=== PATIENT | female | born 1955 | race Caucasian/White ===

== ENCOUNTER 2017-01-15 18:21 | Emergency (ER) | payer BC ==
[2017-01-15 19:22] VITALS: BP 122/57
--- NOTE | 2017-01-15 21:22 | UC ---
UC General HPI - HPI Summary HPI Summary: SUDDEN ONSET OF FEVER 103, CHILLS, BILATERAL RIB PAIN (RIGHT > LEFT), OVERAL BODY ACHES AND MALAISE TODAY AT 3PM. TOOK TYLENOL WHICH HELPED. NO INJURY OR TRAUMA. NO CP OR SOB. PAIN IS WORSE WITH DEEP BREATHS, COUGH AND MOVEMENT. NO ST , EAR PAIN, N/V/D. DOES NOT FEEL LIKE HER FIBRO PAIN. - History of Current Complaint Chief Complaint: UCRespiratory Stated Complaint: NAUSEA Time Seen by Provider: 01/15/17 20:30 Hx Obtained From: Patient, Family/Nurse Ob - DAUGHTER Onset/Duration: Sudden Onset, Lasting Hours, Still Present Timing: Constant Onset Severity: Moderate Current Severity: Moderate Pain Intensity: 4 Associated Signs & Symptoms: Positive: Fever. Negative: Abdominal Pain, Cough, Nausea, Palpitations, Recent Medication Changes, SOB, Vomiting - Allergy/Home Medications Allergies/Adverse Reactions: Allergies Allergy/AdvReac Type Severity Reaction Status Date / Time Erythromycin Allergy GI Upset Verified 01/15/17 19:23 Home Medications: Home Medications Acetaminophen TAB* [Tylenol TAB*] 01/15/17 [History] Albuterol HFA INHALER* [Ventolin HFA Inhaler*] 01/15/17 [History] Amitriptyline TAB* [Elavil TAB*] 01/15/17 [History] Bisoprolol Fumarate [Bisoprolol Fumarate-] 01/15/17 [History] DULoxetine DR CAP* [Cymbalta CAP*] 01/15/17 [History] Fluticasone-Salmeterol 250-50* [Advair Diskus 250-50*] 01/15/17 [History] Furosemide TAB* [Lasix TAB*] 01/15/17 [History] Gabapentin CAP(*) [Neurontin 300 CAP(*)] 01/15/17 [History] traMADol TAB* [Ultram*] 01/15/17 [History] PMH/Surg Hx/FS Hx/Imm Hx - Additional Past Medical History Additional PMH: SARCOIDOSIS, CHRISTOS, FIBROMYALGIA - Surgical History Surgical History: None - Family History Known Family History: Negative: Hypertension, Diabetes - Social History Alcohol Use: None Substance Use Type: None Smoking Status (MU): Former Smoker Review of Systems Constitutional: Fever, Chills Skin: Negative Respiratory: Negative Cardiovascular: Negative Gastrointestinal: Negative Genitourinary: Negative Musculoskeletal: Arthralgia, Myalgia All Other Systems Reviewed And Are Negative: Yes Physical Exam Triage Information Reviewed: Yes Appearance: Well-Appearing, Well-Nourished, Pain Distress - MODERATE Vital Signs: Initial Vital Signs Temp 98.9 F 01/15/17 19:17 Pulse 86 01/15/17 19:17 Resp 18 01/15/17 19:17 BP 122/57 01/15/17 19:17 Pulse Ox 96 01/15/17 19:17 Vital Signs Reviewed: Yes Eyes: Positive: Conjunctiva Clear ENT: Positive: Hearing grossly normal, Pharynx normal, TMs normal Neck: Positive: Supple, Nontender, No Lymphadenopathy Respiratory: Positive: Lungs clear, Normal breath sounds, No respiratory distress, No accessory muscle use, Other: - PLEURITIC PAIN, SPLINTING WITH DEEP BREATHS Cardiovascular Exam: Normal Abdomen Description: Positive: Soft Musculoskeletal: Positive: No Edema, Other: - EXQUISITELY TTP OVER RIB CAGE, RIGHT>LEFT Neurological: Positive: Alert Psychological: Positive: Normal Response To Family, Age Appropriate Behavior Skin: Negative: rashes Diagnostics - Laboratory Diagnostic Studies Completed/Ordered: RAPID FLU NEG Course/Dx - Differential Dx - Multi-Symptom Provider Diagnoses: VIRAL SYNDROME Discharge - Discharge Plan Condition: Stable Disposition: HOME Patient Education Materials: Viral Syndrome (ED) Additional Instructions: VIRAL SYNDROME: The physician has diagnosed a viral infection. Viruses not only cause "colds," but can cause many different symptoms including generalized aching, fever, headache, cough, diarrhea, nausea, vomiting, and fatigue. The treatment, for the most part, is simply relief of symptoms. This means that antibiotics are usually not given. Rest, fluids, pain medications and, occasionally, medication for the specific symptoms that are most bothersome will be prescribed. Contact the physician if you develop any new or unusual symptoms such as severe headache, stiff neck, high fever, chest pain, productive cough, or shortness of breath. You should be rechecked if you don't see marked improvement within seven to 10 days. NO CLEAR ETIOLOGY OF YOUR SYMPTOMS. RAPID FLU NEGATIVE. GO TO THE ER WITHOUT FAIL IF YOU DEVELOP SHORTNESS OF BREATH, CHEST PAIN, NAUSEA, WORSENING FEVER OR ANY OTHER CONCERNING SYMPTOMS. YOU MAY BENEFIT FROM IMAGING TO FURTHER EVALUATE YOUR RIB CAGE PAIN. FOLLOW-UP WITH YOUR DOCTORS IN [place].
== END 2017-01-15 22:08 | disposition home or self-care (01) ==
LOC: UCEAST 18:21
DX: B34.9 Viral infection, unspecified (principal); Z88.1 Allergy status to other antibiotic agents; Z87.891 Personal history of nicotine dependence
CPT/HCPCS: 87502; 99201; G0463

== ENCOUNTER 2019-04-16 16:41 | Emergency (ER) | payer BC, MEDICARE ==
[2019-04-16 17:33] VITALS: BP 117/54
--- NOTE | 2019-04-16 18:01 | ED ---
Back Pain - HPI Summary HPI Summary: 64 yr old female with the complaint of low back pain. Onset of pain two days ago after lifting her grandson. The patient rates her pain as 6/10, and it radiates down the back of both legs. no bowel or bladder incontinence. No focal weakness, or numbness in the legs. - History of Current Complaint Chief Complaint: UCBackPain Stated Complaint: LOWER BACK PAIN Time Seen by Provider: 04/16/19 17:43 Pain Intensity: 5 - Allergies/Home Medications Allergies/Adverse Reactions: Allergies Allergy/AdvReac Type Severity Reaction Status Date / Time erythromycin base Allergy Severe Vomiting Verified 04/16/19 17:28 Home Medications: Home Medications Albuterol HFA INHALER* [Ventolin HFA Inhaler*] 2 puff INH Q4H PRN 04/16/19 [ History Confirmed 04/16/19] Amitriptyline TAB* [Elavil TAB*] 2 tab PO BEDTIME 04/16/19 [History Confirmed ] Bisoprolol TAB* [Zebeta TAB*] 5 mg PO QAM 04/16/19 [History Confirmed 04/16/19] Cholecalciferol TAB* [Vitamin D TAB*] 2,000 unit QAM 04/16/19 [History Confirmed 04/16/19] DULoxetine DR CAP* [Cymbalta CAP*] 60 mg PO QAM 04/16/19 [History Confirmed ] Fluticasone-Salmeterol 250-50* [Advair Diskus 250-50*] 1 puff INH BID 04/16/19 [ History Confirmed 04/16/19] Potassium Chlor TAB* [Klor Con ER TAB*] 20 meq PO BID 04/16/19 [History Confirmed 04/16/19] Pregabalin CAP(*) [Lyrica CAP(*)] 50 mg PO TID 04/16/19 [History Confirmed 04/16] Ranitidine TAB (NF) [Zantac TAB (NF)] 1 tab QAM 04/16/19 [History Confirmed ] Spironolactone TAB* [Aldactone TAB 25 MG*] 1 tab BID 04/16/19 [History Confirmed 04/16/19] Torsemide TAB* [Demadex*] 2 tab PO DAILY 04/16/19 [History Confirmed 04/16/19] Verapamil TAB* [Calan TAB*] 120 mg PO BID 04/16/19 [History Confirmed 04/16/19] traMADol TAB* [Ultram*] 2 tab PO BID 04/16/19 [History Confirmed 04/16/19] PMH/Surg Hx/FS Hx/Imm Hx Infectious Disease History: Yes Infectious Disease History: Reports: Hx Shingles Denies: Traveled Outside the [place] in Last 30 Days - Family History Known Family History: Positive: None Negative: Hypertension, Diabetes - Social History Alcohol Use: Rare Substance Use Type: Reports: None Smoking Status (MU): Former Smoker Review of Systems Constitutional: Negative Positive: Other - back pain All Other Systems Reviewed And Are Negative: Yes Physical Exam Triage Information Reviewed: Yes Vital Signs On Initial Exam: Initial Vitals Temp Pulse Resp BP Pulse Ox 97.5 F 56 16 117/54 97 04/16/19 17:29 04/16/19 17:29 04/16/19 17:29 04/16/19 17:29 04/16/19 17:29 Vital Signs Reviewed: Yes Appearance: Positive: Well-Appearing, No Pain Distress Skin: Positive: Warm, Skin Color Reflects Adequate Perfusion Head/Face: Positive: Normal Head/Face Inspection Eyes: Positive: EOMI, DIETER ENT: Positive: Normal ENT inspection Neck: Positive: Nontender Respiratory/Lung Sounds: Positive: Clear to Auscultation, Breath Sounds Present Cardiovascular: Positive: RRR. Negative: Murmur Abdomen Description: Negative: Distended Musculoskeletal: Positive: Other - no midline back tenderness. Limited ROM lumbar spine due to pain Neurological: Positive: Sensory/Motor Intact, Alert, Oriented to Person Place, Time, CN Intact II-III, Normal Gait, Speech Normal Psychiatric: Positive: Normal Diagnostics - Vital Signs Vital Signs Temp Pulse Resp BP Pulse Ox 04/16/19 17:29 97.5 F 56 16 117/54 97 - Laboratory Lab Statement: Any lab studies that have been ordered have been reviewed, and results considered in the medical decision making process. Back Pain Course/Dx - Course Course Of Treatment: 64 yr old female with lumbar strain. She has history of such in the past. FU with PMD - Diagnoses Provider Diagnoses: Lumbar strain Discharge - Sign-Out/Discharge Documenting (check all that apply): Patient Departure All imaging exams completed and their final reports reviewed: No Studies - Discharge Plan Condition: Good Disposition: HOME Prescriptions: Cyclobenzaprine TAB* [Flexeril 10 MG TAB*] 10 mg PO BID PRN #4 tab PRN Reason: Spasms methylPREDNISolone [Medrol] 4 mg PO .SEE SANDY INSTRUCTION #1 [id number] Patient Education Materials: Low Back Strain (ED) Referrals: No Primary Care Phys,NOPCP [Primary Care Provider] - [facility] [Outside] - Billing Disposition and Condition Condition: GOOD Disposition: Home
== END 2019-04-16 18:03 | disposition home or self-care (01) ==
LOC: UCCORT 16:41
DX: S39.012A Strain of muscle, fascia and tendon of lower back, initial encounter (principal); X50.9XXA Other and unspecified overexertion or strenuous movements or postures, initial encounter; Z79.899 Other long term (current) drug therapy; Z87.891 Personal history of nicotine dependence
CPT/HCPCS: 99212; G0463

== ENCOUNTER 2020-01-02 14:32 | Emergency (ER) | payer MEDICARE ==
[2020-01-02 15:17] LABS: Influenza A Molecular Negative (Negative); Influenza B Molecular Negative (Negative)
[2020-01-02] MEDS ORDERED: Albuterol 2.5 MG/3 ML NEB.SOL* (0.083%) INH ONE (16:10)
--- NOTE | 2020-01-02 16:14 | ED ---
Respiratory - HPI Summary HPI Summary: This patient is a 64 year old F presenting to [facility] with a chief complaint of difficulty breathing since last night, 01/01/20. Symptoms aggravated by nothing. Symptoms alleviated by nothing. Patient reports difficulty breathing possibly due to PNA (similar symptoms experienced in the past due to PNA) and flu swab was negative at [facility]. Pt reports baseline of difficulty breathing due to sarcoidosis and asthma but breathing worsened yesterday. Reports back pain and chest pain described as feeling like somethings sitting on it started last night. Denies n/v. Mhx Fibromyalgia. Denies diabetes, hypertension. Medications reviewed. Allergies noted - History of Current Complaint Chief Complaint: EDFluSymptoms Stated Complaint: FLU LIKE SYMPTOMS Time Seen by Provider: 01/02/20 16:02 Hx Obtained From: Patient Onset/Duration: Lasting Hours, Still Present Timing: Constant Pain Intensity: 6 Aggravating Factor(s): Nothing Alleviating Factor(s): Nothing - Allergy/Home Medications Allergies/Adverse Reactions: Allergies Allergy/AdvReac Type Severity Reaction Status Date / Time erythromycin base Allergy Severe Vomiting Verified 01/02/20 14:48 PMH/Surg Hx/FS Hx/Imm Hx Endocrine/Hematology History: Denies: Hx Diabetes Cardiovascular History: Denies: Hx Hypertension - Surgical History Surgery Procedure, Year, and Place: left knee replacement, right knee done x2, both hands done, right shoulder done, 2 c-sections, appendix, gallbladder, left arm and carpal tunnel in both hands, left foot surgery Infectious Disease History: No Infectious Disease History: Reports: Hx Shingles Denies: Traveled Outside the [place] in Last 30 Days - Family History Known Family History: Positive: Cardiac Disease - heart attack, Other - colon cancer Negative: Hypertension, Diabetes - Social History Alcohol Use: Rare Hx Substance Use: No Substance Use Type: Reports: None Hx Tobacco Use: Yes Smoking Status (MU): Former Smoker Review of Systems Positive: Chest Pain Positive: Other - difficulty breathing Negative: Vomiting, Nausea Positive: Other - back pain All Other Systems Reviewed And Are Negative: Yes Physical Exam - Summary Physical Exam Summary: Constitutional: Well-developed, Well-nourished, Alert. (-) Distressed Skin: Warm, Dry HENT: Normocephalic; Atraumatic Eyes: Conjunctiva normal Neck: Musculoskeletal ROM normal neck. (-) JVD, (-) Stridor, (-) Tracheal deviation Cardio: Rhythm regular, rate normal, Heart sounds normal; Intact distal pulses; Radial pulses are 2+ and symmetric. (-) Murmur Pulmonary/Chest wall: Speaking in shortened sentences, good air entry bilaterally Abd: Soft, (-) tenderness, (-) Distension, (-) Guarding, (-) Rebound Musculoskeletal: (-) Edema Lymph: (-) Cervical adenopathy Neuro: Alert, Oriented x3 Psych: Mood and affect Normal Triage Information Reviewed: Yes Vital Signs On Initial Exam: Initial Vitals Temp Pulse Resp BP Pulse Ox 98.1 F 103 19 140/78 100 01/02/20 14:43 01/02/20 14:43 01/02/20 14:43 01/02/20 14:43 01/02/20 14:43 Vital Signs Reviewed: Yes Procedures - Sedation Patient Received Moderate/Deep Sedation with Procedure: No Diagnostics - Vital Signs Vital Signs Temp Pulse Resp BP Pulse Ox 01/02/20 14:43 98.1 F 103 19 140/78 100 - Laboratory Lab Results: Lab Results 01/02/20 Range/Units 14:45 Influenza A (Rapid) Negative (Negative) Influenza B (Rapid) Negative (Negative) Lab Statement: Any lab studies that have been ordered have been reviewed, and results considered in the medical decision making process. - Radiology Chest X-Ray Radiology Interpretation Completed By: Radiologist Summary of Radiographic Findings: Per radiologist,. NO EVIDENCE FOR ACTIVE CARDIOPULMONARY DISEASE. ED physician has reviewed this imaging report. Disposition - Course Course Of Treatment: Patient is here with shortness of breath. Patient has a history of asthma and sarcoidosis. Patient has been on steroids in the past but is currently on no treatment for her sarcoidosis. Patient was given a albuterol treatment with vast improvement in her symptoms. Patient had a rapid influenza which was negative and a negative chest x-ray for pneumonia. Patient is visiting from out of town and was prescribed an inhaler as she did not bring hers. Patient was also started on a course of prednisone - Diagnoses Provider Diagnoses: Sarcoidosis, Cough, Shortness of breath, Asthma Discharge ED - Sign-Out/Discharge Documenting (check all that apply): Patient Departure - discharge - Discharge Plan Condition: Stable Disposition: HOME Prescriptions: Albuterol HFA INHALER* [Ventolin HFA Inhaler*] 2 puff INH Q4H PRN #1 mdi PRN Reason: Wheezing predniSONE [Prednisone 20 MG TAB] 20 mg PO QAM 4 Days #8 tablet Referrals: Care [facility] [Outside] Additional Instructions: Take steroids as prescribed, come back to [facility] for any trouble breathing, chest pain, fever,any other concerning symptoms. - Billing Disposition and Condition Condition: STABLE Disposition: Home - Attestation Statements Document Initiated by Scribe: Yes Documenting Scribe: Charmaine Nelson Provider For Whom Kamila is Documenting (Include Credential): Dr. Javy Ortega MD Scribe Attestation: Charmaine Chong scribed for Dr. Javy Ortega MD on 01/02/20 at 2133. Scribe Documentation Reviewed: Yes Provider Attestation: The documentation as recorded by the Charmaine valencia accurately reflects the service I personally performed and the decisions made by me, Dr. Javy Ortega MD Status of Scribe Document: Viewed
[2020-01-02 18:54] VITALS: BP 94/48
== END 2020-01-02 19:10 | disposition home or self-care (01) ==
LOC: ED 14:32
DX: D86.9 Sarcoidosis, unspecified (principal); J45.909 Unspecified asthma, uncomplicated; Z87.891 Personal history of nicotine dependence; Z96.653 Presence of artificial knee joint, bilateral; Z90.49 Acquired absence of other specified parts of digestive tract; Z90.89 Acquired absence of other organs; Z88.1 Allergy status to other antibiotic agents
CPT/HCPCS: 71046; 99282; J7512

== ENCOUNTER 2021-06-19 13:04 | Observation (INO) ==
[2021-06-19 16:11] LABS: ABS Eosinophils 0.2 10^3/ul (0-0.6); ABS Lymphocytes 2.1 10^3/ul (1.0-4.8); ABS Monocytes 0.6 10^3/ul (0-0.8); ABS Neutrophils 3.8 10^3/ul (1.5-7.7); Eosinophil % 3.2 %; Hematocrit 40 % (35-47); Hemoglobin 13.8 g/dL (12.0-16.0); Lymphocyte % 31.3 %; Mean Corpuscular HGB Conc 35 g/dL (31-36); Mean Corpuscular Hemoglobin 32 pg (27-31); Mean Corpuscular Volume 92 fL (80-97); Mean Platelet Volume 6.7 fL (7.4-10.4); Platelet Count 188 10^3/uL (150-450); Red Blood Count 4.29 10^6 /uL (3.70-4.87); Red Cell Distribution Width 15 % (10-15); White Blood Count 6.8 10^3/uL (3.5-10.8)
[2021-06-19 17:12] LABS: TSH Ultra Thyroid Stim Horm 1.56 mcIU/mL (0.34-5.60)
[2021-06-19 17:38] LABS: Albumin 4.6 g/dL (3.2-5.2); Albumin/Globulin Ratio 1.4 (1-3); Calcium 9.1 mg/dL (8.6-10.3); EGFR African American 58.3 (>60); EGFR Non-African American 48.2 (>60); Globulin 3.4 g/dL (2-4); Magnesium 2.1 mg/dL (1.9-2.7); Potassium 3.4 mmol/L (3.5-5.0); Total Bilirubin 0.4 mg/dL (0.2-1.0)
[2021-06-19] MEDS ORDERED: Iodixanol (CONTRAST) 320 MG/ML 100 ML SDV IV ONE (20:46)
[2021-06-19] MEDS ORDERED: NS 0.9% 1000 ml BAG 1,000 ML IV ONE (21:04)
[2021-06-20] MEDS ORDERED: Potassium Chlor 20 meq TAB.ER PO ONE ×2 (00:40→07:26)
[2021-06-20] MEDS ORDERED: Albuterol HFA INHALER 8 gm MDI INH PRN (01:23)
[2021-06-20] MEDS ORDERED: Senna TAB 8.6 mg TAB PO PRN (03:01)
[2021-06-20] MEDS ORDERED: Polyethylene Glycol 3350 17 GM PACKET PO PRN (03:01)
[2021-06-20] MEDS: Heparin 5000 UNITS/ML 1 mL VIAL SUBCUT SCH ×2 (04:32→16:07)
[2021-06-20 04:58] LABS: ABS Basophils 0.1 10^3/ul (0-0.2); ABS Eosinophils 0.2 10^3/ul (0-0.6); ABS Monocytes 0.5 10^3/ul (0-0.8); ABS Neutrophils 3.5 10^3/ul (1.5-7.7); Hematocrit 36 % (35-47); Hemoglobin 12.6 g/dL (12.0-16.0); Lymphocyte % 31.6 %; Mean Corpuscular HGB Conc 35 g/dL (31-36); Mean Corpuscular Hemoglobin 32 pg (27-31); Mean Corpuscular Volume 91 fL (80-97); Mean Platelet Volume 6.9 fL (7.4-10.4); Platelet Count 175 10^3/uL (150-450); Red Blood Count 3.96 10^6 /uL (3.70-4.87); Red Cell Distribution Width 15 % (10-15); White Blood Count 6.2 10^3/uL (3.5-10.8)
[2021-06-20 05:17] LABS: Calcium 8.8 mg/dL (8.6-10.3); EGFR African American 53.9 (>60); EGFR Non-African American 44.5 (>60); Potassium 3.5 mmol/L (3.5-5.0)
[2021-06-20] MEDS ORDERED: Perflutren Lipid Microsphere 3 ML VIAL ONE (08:35)
[2021-06-20] MEDS ORDERED: DULoxetine DR 60 mg CAP PO SCH (09:00)
[2021-06-20] MEDS ORDERED: Mometasone/Formoter 200/5 MDI INH SCH (09:00)
[2021-06-20 13:33] LABS: Urine Appearance Clear; Urine Bilirubin Negative (Negative); Urine Blood Negative (Negative); Urine Color Yellow; Urine Glucose Negative (Negative); Urine Ketones Negative (Negative); Urine Nitrite Negative (Negative); Urine Protein Negative (Negative); Urine Specific Gravity 1.056 (1.002-1.030); Urine Urobilinogen Negative (Negative)
[2021-06-20 13:54] LABS: Urine Bacteria Absent (Absent); Urine Red Blood Cell 1+(3-5/hpf) (Absent); Urine Squamous Epithelial Cell Present (Absent); Urine White Blood Cell 1+(6-10/hpf) (Absent)
[2021-06-20 16:50] VITALS: BP 127/53
== END 2021-06-20 18:01 | disposition home or self-care (01) ==
LOC: ED 13:04 → MEDTELE 13:04
PROVIDERS: ADMIT Internal Medicine; ATTEND Internal Medicine